=== PATIENT | male | born 1980 | race Caucasian/White ===

== ENCOUNTER 2025-06-06 09:45 | Day surgery (SDC) | payer BC, SELFPAY ==
[2025-06-06] VITALS (7 sets, daily range): BP systolic 105–134; BP diastolic 76–81; PULSE 70–88; RESP 16–18; TEMP 36.2–36.8; O2SAT 97–100; BMI 28.6
--- NOTE | 2025-06-06 10:14 | PCM.HP.STD ---
HPI - General General Date of Admission: 06/06/25 Date of Service: 06/06/25 Chief Complaint: Heartburn HPI Narrative BOYD MEJIA, is a 44 M who presents [ Chief Complaint: Heartburn Patient with worsening heartburn over the past year. Patient was started on famotidine 40 mg daily in the evening prior to bed. He has also been elevating his head while he sleeps and sleeping on his left side. This has helped with some of the heartburn but still has discomfort in his esophagus. Patient works 12-hour shifts and has to drive an hour to work which causes him to eat late in the evening. He also notes eating a lot of fast food which he is sure is not helping with his GI symptoms. He has a bowel movement daily without straining. He does endorse intermittent looser stools. Patient has a family history of colon cancer in his grandfather but is unsure at what age she was diagnosed. He has never had a colonoscopy or an EGD. He denies epigastric or abdominal pain. pantoprazole 40 mg PO QDAY 30 tabs 2RF ] [facility] Medical History Wears glasses Marijuana use High cholesterol Restless legs Gastric reflux Non-smoker Home Medications ?Medication ?Instructions ?Recorded ?Last Taken ?Type famotidine 40 mg tablet 40 mg PO QHS 05/02/25 06/05/25 History simvastatin 20 mg tablet 20 mg PO QHS 05/02/25 06/05/25 History fexofenadine-pseudoephedrine ER 1 tab PO QHS 05/31/25 06/05/25 History 180 mg-240 mg tablet,ext.release 24 hr (24HR Allergy-Congestion Relief) pantoprazole 40 mg tablet,delayed 40 mg PO DAILY 06/06/25 06/05/25 History release Allergy/AdvReac Type Severity Reaction Status Date / Time No Known Allergies Allergy Verified 06/06/25 10:13 Family History Grandmother Breast cancer Brother Asthma Grandfather Colon cancer Surgical History History of wisdom tooth extraction Social History Smoking Status: Never smoker alcohol intake: never substance use type: marijuana ROS Constitutional Constitutional: Denies fatigue, fever(s), poor appetite, weight gain or weight loss Gastrointestinal Gastrointestinal: Denies belching, bloating, change in bowel habits, change in stool character, chewing difficulty, coffee ground emesis, constipation, cramping, diarrhea, dyspepsia, dysphagia, early satiety, excessive flatus, fecal incontinence, heartburn, hematemesis, hematochezia, hemorrhoids, loose stools, melena, nausea, odynophagia, rectal bleeding, tenesmus, vomiting or weight changes Physical Exam Const alert, oriented x3, no apparent distress and healthy appearing General Appearance: cooperative GI normal to inspection, nondistended, normoactive bowel sounds, soft to palpation, non-tender and non-distended Percussion: normal to percussion Rectal Exam: deferred Assessment & Plan Assessment/Plan (1) Heartburn: PLAN: Assessment and Plan Assessment and Plan (1) Heartburn: Status: Acute Plan: Boyd is a 44-year-old male patient here today for evaluation of worsening heartburn over the past year. Patient was seen by his primary care provider who started him on famotidine 40 mg daily. Patient sleeps upright and on his left side. Medication and lifestyle modifications have helped but he continues to have esophageal discomfort. He admits to eating fast food frequently due to long work shifts and driving an hour away from home. Patient also with complaints of intermittent loose stool. He has a family history of colon cancer in his grandfather but unsure what age he was diagnosed. I recommended both upper and lower endoscopy for evaluation of his symptoms. At this time patient would prefer to pursue just the EGD and get a colonoscopy in the future. He was scheduled for EGD today. I have also started him on pantoprazole 40 mg daily 30 minutes prior to a meal. If his symptoms resolve with PPI he may cancel his EGD. I have also advised he limit his fast food intake and try to eat earlier in the day. - Start pantoprazole 40 mg daily - Continue famotidine - EGD - Colonoscopy in the future to evaluate loose stools - Follow-up after procedure Note: [employer] speech recognition business planning analyst software was used to create portions of this document. Sound-alike and misspelled words, as well as other business planning analyst errors may be contained in the documentation. Medications: New pantoprazole 40 mg PO QDAY 30 tabs 2RF
[2025-06-06] MEDS: Lactated Ringers 1,000 ML 15 ML IV (10:24)
--- NOTE | 2025-06-06 10:27 | PCM.PRE.AN2 ---
ASA Classification* ASA Classification ASA Classification: 2 Assessment & Plan Anesthesia* Anesthesia Assessment Anesthesia Assessment: Discussed sedation and/or anesthesia options, risks, benefits, and alternatives with patient/parents/legal guardian/POA. Questions invited. The patient/parents/legal guardian/POA seems to understand and agrees to proceed with anesthesia plan. Reviewed the physical assessment, medical history, allergy history and patient home medications list prior to surgery/procedure/anesthetic and documented any changes. Performed airway and anesthesia risk assessments. Anesthesia Type Anesthesia Type: MAC History Source History Obtained from:: Patient and Chart Anesthesia Focused Assessment* Temperature: 98.2 F Pulse Rate: 70 Blood Pressure: 134/78 Respiratory Rate: 18 Pulse Ox: 100 Oxygen Delivery Method: Room Air Airway Assessment Mouth opens: >3 cm Mallampati Score: II Neck Range of motion (ROM): Full ROM Labs Anesthesia Preop lab: CBC CHEMISTRY COAG Pre-Assessment Diagnosis/Proposed Procedure Planned Operative Procedure(s): EGD Anesthesia History Anesthesia History - development system efficiency manager: Anesthesia History - development system efficiency manager Hx Hospitalization No 05/31/25 10:44 Any Problems With Anesthesia No 05/31/25 10:44 Cholinesterase deficiency No 05/31/25 10:44 You/Your Family Experience No 05/31/25 10:44 fever (hyperthermia) with Relationship Recent Exposure to Contagious Disease Does patient have nerve No 05/31/25 10:44 stimulator Patient instructed to have device shut off --Does patient have Pacemaker No 06/06/25 10:14 or ICD? When Was Last Pacemaker Check QUESTION #4 FULL TEXT: You/Your Family Experience fever (hyperthermia) with Anesthesia Last Oral Intake Last Oral intake: Last Oral Intake NPO since 05:30 06/06/25 10:14 Meds taken in AM with sips of water? Meds patient instructed to take am of surgery PONV PONV - development system efficiency manager: PONV - development system efficiency manager Female No 05/31/25 10:44 HX of Motion Sickness No 05/31/25 10:44 HX of N/V After Surgery No 05/31/25 10:44 Non-Smoker Yes 05/31/25 10:44 Duration of Surgery greater No 05/31/25 10:44 than 60 minutes Number of Risk Factors 1 05/31/25 10:44 PONV Score Low Risk 05/31/25 10:44 Height & Weight Height & Weight: Anesthesia: Height & Weight Height 5 ft 9 in 06/06/25 10:14 Weight: 88 kg 06/06/25 10:14 Body Mass Index (BMI) 28.6 06/06/25 10:14 Respiratory Assessment Respiratory Assessment - development system efficiency manager: Respiratory Tract Infection Hx - development system efficiency manager Hx Respiratory Tract Infection No 05/31/25 10:44 STOP Sleep Apnea STOP Sleep Apnea - development system efficiency manager: STOP Sleep Apnea - development system efficiency manager Hx Hypertension No 05/31/25 10:44 Hx Sleep Apnea No 05/31/25 10:44 CPAP BIPAP Do you snore loudly (louder Yes 05/31/25 10:44 than talking or can be heard Do you often feel tired/ Yes 05/31/25 10:44 fatigued/ sleepy during daytime? Has anyone observed you stop No 05/31/25 10:44 breathing during sleep? STOP Results Positive 05/31/25 10:44 QUESTION #5 FULL TEXT : Do you snore loudly (louder than talking or can be heard through closed doors)? Tobacco Use History Tobacco Use History - development system efficiency manager: Tobacco Use History - development system efficiency manager Tobacco Use Smoking Status Never smoker 05/31/25 10:44 Hx Tobacco Use No 05/31/25 10:44 Years Smoking Packs Smoked per Day Smoking Cessation Date was within the last 15 years Hx Smoking Cessation Date Hx Smoking Cessation Counseling Hematologic Medial History Hematologic Hx - development system efficiency manager: Hematologic Medical Hx - nursing informatics specialist Hx of Blood Transfusion No 05/31/25 10:44 Hx of Transfusion in last 3 No 05/31/25 10:44 Months Date of Last Transfusion (if within last 3 months) Ever experience any problems No 05/31/25 10:44 with transfusion(s)? Specify any problems Hx of Preganancy in last 3 N/A 05/31/25 10:44 Months Nurse Filling Out Transfusion NBUCHER 05/31/25 10:44 & Questions: Date: 05/31/25 05/31/25 10:44 Time: 10:46 05/31/25 10:44 Patient unable to answer at this time (ie. confused, unrespo /Reproduction History /Reproductive History - development system efficiency manager: /Reproductive Hx- development system efficiency manager Hx Now No 05/31/25 10:44 Gestational Age (in weeks): EDC: Hx Hx Para Hx Section SAB No 05/31/25 10:44 Active Medications Active Medications: Current Medications Generic Name Dose Route Start Last Admin Trade Name Enma PRN Reason Stop Dose Admin Lactated Ringer's 1,000 mls @ 15 mls/hr 06/06/25 10:00 06/06/25 10:24 IV 15 mls/hr .Q48H NELA Administration PFSH Medical History Wears glasses Marijuana use High cholesterol Restless legs Gastric reflux Non-smoker Home Medications ?Medication ?Instructions ?Recorded ?Last Taken ?Type famotidine 40 mg tablet 40 mg PO QHS 05/02/25 06/05/25 History simvastatin 20 mg tablet 20 mg PO QHS 05/02/25 06/05/25 History fexofenadine-pseudoephedrine ER 1 tab PO QHS 05/31/25 06/05/25 History 180 mg-240 mg tablet,ext.release 24 hr (24HR Allergy-Congestion Relief) pantoprazole 40 mg tablet,delayed 40 mg PO DAILY 06/06/25 06/05/25 History release Allergy/AdvReac Type Severity Reaction Status Date / Time No Known Allergies Allergy Verified 06/06/25 10:13 Family History Grandmother Breast cancer Brother Asthma Grandfather Colon cancer Surgical History History of wisdom tooth extraction Social History Smoking Status: Never smoker alcohol intake: never substance use type: marijuana Addt'l Information Additional Findings: > 4 METS Review of Systems (Anesthesia) ROS Narrative System reviewed and no additional complaints, except as documented. Physical Exam Neck full ROM Resp normal respiratory effort and normal air movement Auscultation: clear to auscultation bilaterally Cardio regular rate and regular rhythm Back/Spine normal ROM Neuro oriented x3 and moves all extremities
--- NOTE | 2025-06-06 10:45 | EGD_PTH ---
PATIENT: ROBERTOALCIEDS SHILPA LOC: EN U#:[id number] AGE/SX: 44/M ROOM: RE06/06/[address]: Dr. Jason Land DO : 1980 BED: DIS: 06/06/2025 SPEC #: [id number] RECD: 06/06/25 11:51 STATUS: KYLE SUNSHINE #: [id number] STEPHEN: 06/06/25 10:[address]: Jason Land DEPT: SURGICAL PATHOLOGY RECD BY: Kwabena Nix ENTERED: 06/06/25 15:09 SP TYPE: EGD BIOPSY CHAN DR: Dr. Jean Claude Torre MD Tissues: A - Esophagus, NOS B - Duodenum, NOS Procedures: Surgery Specimen Level IV HEADER OPERATION: EGD with biopsy PRE-OP DIAGNOSIS: Heartburn TISSUE SUBMITTED: A- Distal esophagus biopsy, B- Duodenum polyp biopsy MICROSCOPIC DIAGNOSIS A. Distal esophagus, biopsy: * Squamous mucosa with reactive changes and 15 eosinophils per high power field. * Columnar mucosa negative for goblet cell metaplasia. B. Duodenum, polyp, biopsy: * Jasmeet gland hyperplasia and gastric mucin cell metaplasia, suggestive of peptic injury. * Negative for increased intraepithelial lymphocytes. MICROSCOPIC DESCRIPTION Slides are reviewed. GROSS DESCRIPTION A. Received in fixative is one container labeled with the patient's name and designated Distal esophagus biopsy. The specimen consists of two irregular fragments of arnold tissue that measure 0.5 and 0.6 cm. The specimen is totally submitted in one cassette. B. Received in fixative is one container labeled with the patient's name and designated Duodenum polyp biopsy. The specimen consists of two irregular fragments of arnold tissue that measure 0.5 and 0.6 cm. The specimen is totally submitted in one cassette. MN 06/06/2025 CPT:[id number]
--- NOTE | 2025-06-06 11:12 | POSTOP.ANE_ITS ---
Anesthesia: Postop Eval I
--- NOTE | 2025-06-06 11:12 | PCM.POST.ANE ---
Anesthesia: Postop Eval I Current Vital Signs Temperature: 97.1 F Pulse Rate: 85 Blood Pressure: 105/76 Respiratory Rate: 16 Pulse Ox: 97 Oxygen Delivery Method: Room Air Assessment Airway patent: Yes Spontaneous unlabored respirations: Yes Mental status: Asleep nausea: No Vomiting: No Anesthesia Complication: No Fluid Hydration Crystalloid volume administer (ml): 400 Total IV fluid infused: 400 Progress Note Anesthesia document: Postop Eval 1 completed: Yes
--- NOTE | 2025-06-06 11:15 | OP.EGD_ITS ---
Patient Name: Boyd Lopez
--- NOTE | 2025-06-06 11:36 | POSTOPAN2_ITS ---
Anesthesia Postop Eval I Sum
--- NOTE | 2025-06-06 11:36 | PCM.POSTANE2 ---
Anesthesia Postop Eval I Sum Postop Eval Completion status Anesthesia document: Postop Eval 1 completed: Yes Anesthesia Postop Eval I Summary Anesthesia Postop Eval I Summary: Anesthesia Postop Eval I: Assessment Summary Airway patent Yes 06/06/25 11:13 [email or web address] Spontaneous unlabored Yes 06/06/25 11:13 [email or web address] respirations Mental status Asleep 06/06/25 11:13 [email or web address] nausea No 06/06/25 11:13 [email or web address] Vomiting No 06/06/25 11:13 [email or web address] Anesthesia Postop Eval I: Fluid Summary Crystalloid volume administer 400 06/06/25 11:13 [email or web address] (ml) Colloids volume administered ( ml) Blood Product volume administered (ml) Total IV fluid infused 400 06/06/25 11:13 [email or web address] Anesthesia Postop Eval I: Summary Notes Anesthesia Complication No 06/06/25 11:13 [email or web address] Anesthesia Complication Comment: Post-operative progress note Anesthesia: Postop Eval II Evaluation Mental status: Awake Pain Level: 0 nausea: No Vomiting: No Complications Anesthesia Complication: No
== END 2025-06-06 11:53 | disposition home or self-care (01) ==
LOC: EN 09:49 → AC 09:50
PROVIDERS: PCP Internal Medicine; Referring Provider Internal Medicine; Visit Provider Internal Medicine Gastroenterology
PROC: 0DJ08ZZ Inspection of Upper Intestinal Tract, Via Natural or Artificial Opening Endoscopic (ICD-10-PCS; CPT 43235; principal; 2025-06-06 10:40)
DX: K21.9 Gastro-esophageal reflux disease without esophagitis (principal); K31.84 Gastroparesis; E78.00 Pure hypercholesterolemia, unspecified; R10.13 Epigastric pain; K31.7 Polyp of stomach and duodenum; Z80.0 Family history of malignant neoplasm of digestive organs; Z79.899 Other long term (current) drug therapy; K22.89 Other specified disease of esophagus; K31.A0 Gastric intestinal metaplasia, unspecified; K31.89 Other diseases of stomach and duodenum
CPT/HCPCS: 44361; 88305; J2405